=== PATIENT | female | born 1985 | race Two or more races ===

== ENCOUNTER 2017-07-22 05:40 | Emergency (ER) | payer SELFPAY ==
[~2017-07-22] VITALS: Ht 172.7 cm; Wt 131.6 kg
[2017-07-22] MEDS ORDERED: methylPREDNISolone SOD SUCC 125 MG/2 ML IVPush ONE (06:00)
[2017-07-22] MEDS ORDERED: ONDANSETRON 2MG/ML, 2ML IVPush ONE (06:00)
[2017-07-22] MEDS ORDERED: SODIUM CHLORIDE FLUSH 10ML SYR IVF ONE (06:00)
[2017-07-22] MEDS ORDERED: SODIUM CHLORIDE 0.9% 1,000ML IVBOLUS ONE (06:00)
[2017-07-22] MEDS ORDERED: ALBUTEROL SULFATE 2.5 MG/3 ML NPPB ONE (06:00)
[2017-07-22] MEDS ORDERED: ALBUTEROL/IPRATROPIUM 2.5MG/0.5MG, 3 ML ONE (06:33)
[2017-07-22] MEDS ORDERED: methylPREDNISolone SOD SUCC 125 MG/2 ML ONE (06:37)
[2017-07-22] MEDS ORDERED: ONDANSETRON 2MG/ML, 2ML ONE (06:37)
[2017-07-22 06:42] LABS: HEMOGLOBIN 12.5 g/dL (11.7-16.4); WHITE BLOOD COUNT 10.8 x10^3/uL (3.4-10)
[2017-07-22 06:54] LABS: ASPARTATE AMINO TRANSFERASE 14 U/L (15-37); BLOOD UREA NITROGEN 9 mg/dL (7-18)
[2017-07-22 07:31] VITALS: BP 136/103
== END 2017-07-22 07:45 | disposition home or self-care (01) ==
LOC: ED 06:03
DX: J20.8 Acute bronchitis due to other specified organisms (principal); R11.2 Nausea with vomiting, unspecified; R19.7 Diarrhea, unspecified
CPT/HCPCS: 36415; 74022; 80053; 81001; 84703; 85025; 94640; 96361; 96374; 96375; 99285; J2405; J2930; J7030